=== PATIENT | male | born 1985 | race Caucasian/White ===

== ENCOUNTER 2016-12-02 13:37 | Emergency (ER) | payer OTHER ==
[~2016-12-02 13:37] MED LIST: KEFLEX500 M4 PO; TYLOPHEN500 M1 PO
== END 2016-12-02 14:56 ==
LOC: EDMED 13:37
PROC: 0HQ0XZZ Repair Scalp Skin, External Approach (ICD-10-PCS; principal; 2016-12-02)
DX: S01.01XA Laceration without foreign body of scalp, initial encounter (principal); F17.210 Nicotine dependence, cigarettes, uncomplicated; W22.8XXA Striking against or struck by other objects, initial encounter; Y92.69 Other specified industrial and construction area as the place of occurrence of the external cause; Y99.0 Civilian activity done for income or pay